=== PATIENT | female | born 1995 | race Asian ===

== ENCOUNTER 2016-11-06 01:23 | Emergency (ER) | payer OTHER ==
--- NOTE | 2016-11-06 01:35 | ED ---
Allergic Reaction/Systemic - HPI Summary HPI Summary: Patient is a student at [employer] and has many food allergies. She ate almonds tonight, which she has eaten in the past, and began feeling like her tongue was itchy, and her lips began to swell. She used her albuterol inhaler without relief, and therefore called 911. She was given Benadryl IV and her symptoms have decreased significantly. She does not have an epi-pen and does not see an accounts payable bookkeeper locally. She denies hives, nausea, abdominal pain, or lightheadedness. - History of Current Complaint Time Seen by Provider: 11/06/16 01:26 Hx Obtained From: Patient Onset/Duration: Sudden Onset Timing: Constant Severity Initially: Moderate Severity Currently: Mild Character: Swelling - lips Aggravating Factor(s): Nothing Alleviating Factor(s): Antihistamines Associated Signs And Symptoms: Positive: Cough Wheezing - Related Hx Possible Reaction To: Food - almonds - Allergies/Home Medications Allergies/Adverse Reactions: Allergies Allergy/AdvReac Type Severity Reaction Status Date / Time Clarithromycin [From Biaxin] Allergy Intermediate Joint Pain Verified 11/06/16 01:54 Soy Allergy Allergy Unknown Unknown Verified 11/06/16 01:54 Reaction Details Wheat Extract Allergy Unknown Unknown Verified 11/06/16 01:54 Reaction Details HAZELNUTS Allergy Unknown Unknown Uncoded 03/30/16 12:50 Reaction Details PEANUTS Allergy Unknown Unknown Uncoded 03/30/16 12:50 Reaction Details PMH/Surg Hx/FS Hx/Imm Hx Endocrine/Hematology History: Denies: Hx Diabetes Cardiovascular History: Denies: Hx Congestive Heart Failure, Hx Hypertension Respiratory History: Reports: Hx Asthma History: Denies: Hx Renal Disease - Family History Known Family History: Positive: Other - asthma - Social History Occupation: Student Lives: Long Term - apartment with room mates Alcohol Use: None Substance Use Type: Reports: None Smoking Status (MU): Never Smoked Tobacco Review of Systems Negative: Sore Throat Negative: Chest Pain Positive: Cough. Negative: Shortness Of Breath Negative: Abdominal Pain, Nausea Negative: Rash Negative: Headache All Other Systems Reviewed And Are Negative: Yes Physical Exam - Summary Physical Exam Summary: Patient is laying on stretcher resting comfortably in no acute distress. Triage Information Reviewed: Yes Vital Signs Reviewed: Yes Appearance: Positive: Well-Appearing, No Pain Distress, Well-Nourished Skin: Positive: Warm, Skin Color Reflects Adequate Perfusion, Dry, Soft Head/Face: Positive: Normal Head/Face Inspection, Other - scant erythema on above upper lip with minimal edema Eyes: Positive: EOMI, EFFIE, Conjunctiva Clear ENT: Positive: Hearing grossly normal, Pharynx normal. Negative: Tonsillar swelling Neck: Positive: Supple, Nontender, No Lymphadenopathy Respiratory/Lung Sounds: Positive: Clear to Auscultation, Breath Sounds Present. Negative: Stridor, Tracheal Deviation, Wheezes Cardiovascular: Positive: RRR Abdomen Description: Positive: Nontender, Soft Bowel Sounds: Positive: Present Musculoskeletal: Negative: Edema Left, Edema Right Neurological: Positive: Sensory/Motor Intact, Alert, Oriented to Person Place, Time, NV Bundle Intact Distally, Normal Gait Psychiatric: Positive: Affect/Mood Appropriate AVPU Assessment: Alert Re-Evaluation - Re-Evaluation First Eval Re-Evaluation Time: 20:00 Change: Improved Comment: patient continues to feel better. Allergic Reaction Course/Dx - Diagnoses Differential Diagnosis/HQI/PQRI: Positive: Airway Obstruction, Anaphylaxis, Angioedema, Local Allergic Reaction, Urticaria Provider Diagnoses: Allergic reaction Discharge - Discharge Plan Condition: Stable Disposition: HOME Patient Education Materials: Food Allergy (ED) Referrals: Nely Lazcano MD [Medical Doctor] - [facility] [Outside] Additional Instructions: Please call an accounts payable bookkeeper tomorrow or your regular provider to discuss getting an Epi-pen in case your allergies worsen. Use Benadryl 50 mg every 4 hours for the next 24 hours. Return to the emergency department if symptoms worsen.
[2016-11-06 01:57] VITALS: BP 119/69
== END 2016-11-06 03:02 | disposition home or self-care (01) ==
LOC: ED 01:23
DX: T78.40XA Allergy, unspecified, initial encounter (principal); R05 Cough; R06.2 Wheezing; X58.XXXA Exposure to other specified factors, initial encounter
CPT/HCPCS: 99282